=== PATIENT | female | born 1960 | race African-American/Black ===

== ENCOUNTER 2024-04-23 16:44 | Emergency (ER) | payer SELFPAY ==
[2024-04-23 16:49] VITALS: BP 156/87; PULSE 96; RESP 18; TEMP 98.6; BMI 24.4
[2024-04-23] MEDS ORDERED: ONDANSETRON 4 MG/2 ML VIAL ONE (18:14)
[2024-04-23] MEDS ORDERED: ACETAMINOPHEN INJECTION 100 ML ONE (18:14)
[2024-04-23] MEDS ORDERED: FAMOTIDINE 20 MG/50 ML IVPB 20 MG/50 ML MG IVPB ONE (18:15)
[2024-04-23 18:18] LABS: BASO % 1.1 % (0-2.0); EOS % 1.7 % (0-4.5); HEMATOCRIT 39.2 % (32.4-45.2); HEMOGLOBIN 12.7 GM/dL (10.7-15.3); LYMPH % 44.9 % (8-40); MCH 31.7 pg (25.7-33.7); MCHC 32.5 g/dl (32.0-36.0); MEAN CELL VOLUME 97.5 fl (80-96); MEAN PLT VOLUME 7.2 fl (7.5-11.1); MONO % 7.5 % (3.8-10.2); NEUT % 44.8 % (42.8-82.8); PLATELET COUNT 322 10^3/uL (134-434); RBC 4.02 M/mm3 (3.60-5.2); RDW 13.4 % (11.6-15.6)
[2024-04-23 18:22] LABS: EPI CELLS 8 /uL (0-25.1); HYALINE CASTS 0 /uL (0-3.1); PH,URINE 6.5 (5.0-8.0); URINE APPEARANCE CLEAR; URINE BACTERIA 1067 /uL (0-1359); URINE BILIRUBIN NEGATIVE (NEGATIVE); URINE COLOR YELLOW; URINE GLUCOSE (UA) NEGATIVE (NEGATIVE); URINE KETONE TRACE (NEGATIVE); URINE LEUK ESTERASE TRACE (NEGATIVE); URINE NITRITE NEGATIVE (NEGATIVE); URINE PROTEIN TRACE (NEGATIVE); URINE RBC 8 /uL (0-23.9); URINE WBC 20 /uL (0-25.8)
[2024-04-23] MEDS: FAMOTIDINE 20 MG/50 ML IVPB 20 MG/50 ML MG IVPB ONE (18:30)
[2024-04-23] MEDS: ONDANSETRON 4 MG/2 ML VIAL IVPUSH ONE (18:30)
[2024-04-23 18:35] LABS: POTASSIUM 4.5 mmol/L (3.5-5.1)
[2024-04-23 18:39] LABS: BLOOD UREA NITROGEN 20.4 mg/dL (7-18)
[2024-04-23 18:40] LABS: CREATININE 1.1 mg/dL (0.55-1.3)
[2024-04-23 18:43] LABS: BILIRUBIN,TOTAL 0.4 mg/dL (0.2-1)
[2024-04-23] MEDS: ACETAMINOPHEN 1000 MG/100 ML BAG IVPB ONE (18:48)
== END 2024-04-23 20:08 | disposition home or self-care (01) ==
LOC: JER 16:44
PROC: 3E033GC Introduction of Other Therapeutic Substance into Peripheral Vein, Percutaneous Approach (ICD-10-PCS; principal; 2024-04-23)
PROC: 3E033NZ Introduction of Analgesics, Hypnotics, Sedatives into Peripheral Vein, Percutaneous Approach (ICD-10-PCS; 2024-04-23)
PROC: 3E033GC Introduction of Other Therapeutic Substance into Peripheral Vein, Percutaneous Approach (ICD-10-PCS; 2024-04-23)
DX: K52.9 Noninfective gastroenteritis and colitis, unspecified (principal); R11.2 Nausea with vomiting, unspecified; R10.84 Generalized abdominal pain; M25.572 Pain in left ankle and joints of left foot; M25.472 Effusion, left ankle; R09.81 Nasal congestion; J02.9 Acute pharyngitis, unspecified; R05.9 Cough, unspecified
CPT/HCPCS: 36415; 73610-TC-LT-FY; 80053; 81003; 83690; 85025; 87086; 99284-25; J0131